=== PATIENT | male | born 1955 | race Caucasian/White ===

== ENCOUNTER 2017-03-28 15:46 | Emergency (ER) | payer OTHER ==
[2017-03-28 16:26] VITALS: TEMP 99.1; BMI 26.0
--- NOTE | 2017-03-28 17:09 | PDOC ---
Attending Attestation - HPI HPI: 03/28/17 18:59 The patient is a 61 year old male, with a significant past medical history of HTN, COPD, schizophrenia, MDD, HLD, daily aspirin use, repeated falls, who presents to the emergency department from [facility] s/p mechanical fall yesterday with scrapes on his forehead. The patient was a poor historian. He denies a headache. Allergies: NKA Social History: Smoker (3 cigarettes a day). ROS: A complete review of 10 out of 10 review of systems is taken and is negative apart from what is previously mentioned below and in the HPI. - Physicial Exam PE: 03/28/17 19:01 Vitals: Triage vital signs reviewed General Appearance: No acute distress, well nourished, well developed Head: +Abrasion to forehead. Eyes: Pupils equal reactive round, extraocular movement intact Neck: Supple; No nuchal rigidity Chest Wall: Nontender Cardiac: Regular rate and rhythm, no murmurs, no rubs, no gallops Lungs: Clear to auscultation bilateral, good air movement bilaterally Abdomen: Soft, nondistended, normal bowel sounds, nontender to palpation Genitourinary: Rectal: Exam deferred Extremities: Full range of motion to all extremities, no cyanosis, clubbing, or edema Skin: Warm and dry, no rashes or lesions, no rash, no petechiae Neuro: AOX3; Cranial Nerves 2-12 grossly intact, Strength intact to all extremities, Sensation intact to all extremities, gait normal Psych: Normal mood, normal affect - Medical Decision Making 03/28/17 19:01 Patient is a 61 year old male presenting to the emergency department from [facility] s/p mechanical fall yesterday with a laceration to the forehead. Plan is to perform a CT head and blood work. EXAM: CT head noncontrast HISTORY: Fall COMPARISON: None. FINDINGS: There is no intra or extra-axial hemorrhage or collection. No mass lesion or midline shift. There is moderate cortical atrophy. The ventricles are not enlarged and are midline in position Normal lance-white matter differentiation. The calvarium is intact. Mild scalp soft tissue swelling posterior vertex Mild mucoperiosteal thickening in the maxillary sinuses with possible small retention cyst or polyp in the left sphenoid sinus The visualized paranasal sinuses and mastoid air cells are clear. Debris in the bilateral auditory canals more so on the left side Read by: Brooks Munoz MD <Ollie Fonseca - Last Filed: 03/28/17 19:03> - Resident Resident Name: J Luis Templetonna - ED Attending Attestation I have performed the following: I have examined & evaluated the patient, The case was reviewed & discussed with the resident, I agree w/resident's findings & plan, Exceptions are as noted - Medical Decision Making [facility] normal neurologic examination here in the emergency department Imaging labs all within normal limits. We'll [facility] back to prison Findings, the need for follow-up, strict return instructions discussed with patient. A portion of this note was documented by scribe services under my direction I reviewed the details of note within reason and agree with the documentation with the following case summary and management plan written by me <Ricki Turner - Last Filed: 03/28/17 19:06> Attestations - Attestations 03/28/17 19:02 Documentation prepared by Ollie Fonseca, acting as medical record consultant for Ricki Turner MD. <Ollie Fonseca - Last Filed: 03/28/17 19:03>
--- NOTE | 2017-03-28 17:14 | PDOC ---
History of Present Illness <Ricki Turner - Last Filed: 03/28/17 17:47> - General History Source: Patient Exam Limitations: Clinical Condition - History of Present Illness Initial Comments: 03/28/17 17:14 61 M with PMH HTN, COPD, schizophrenia, MDD, HLD, daily aspirin use, repeated falls, who was brought to the ED from [facility] s/p fall. Pt is a poor historian. As per pt, he fell last night from his bed onto the floor, falling on his L side. Nurse at [facility] states that fall was witnessed by pt's roommate , who notified staff of fall. Denies head trauma, LOC, injury, palpitations prior, or seizure-like activity. Pt also denies current BARRAZA, fever, chills, N/V, or changes in urinary or bowel function. PMH: HTN, COPD, schizophrenia, MDD, HLD, daily aspirin use, repeated falls PsxH: LLE - unknown meds: as in chart allergies: NKDA FH: non-contributory SH: Has lived at [facility] for the past 7-8 yrs. active smoker; has smoked 3 cigarettes/day "for many years" - unable to quantify. Denies alcohol or recreational drug use <Geeta Templeton - Last Filed: 03/28/17 18:49> - General Chief Complaint: Injury Stated Complaint: FALL Time Seen by Provider: 03/28/17 16:03 Past History <Ricki Turner - Last Filed: 03/28/17 17:47> - Past Medical History Anemia: Yes COPD: Yes HTN: Yes Hypercholesterolemia: Yes Psychiatric Problems: Yes (Schizophrenia,Major Depressive Disorder) - Immunization History Td Vaccination: No (UNKNOWN) - Suicide/Smoking/Psychosocial Hx Smoking Status: Yes Smoking History: Former smoker Have you smoked in the past 12 months: No Number of Cigarettes Smoked Daily: 3 Cigars Per Day: 0 Information on smoking cessation initiated: No <Geeta Templeton - Last Filed: 03/28/17 18:49> - Past Medical History Allergies/Adverse Reactions: Allergies Allergy/AdvReac Type Severity Reaction Status Date / Time No Known Allergies Allergy Verified 03/28/17 16:22 Home Medications: Ambulatory Orders Albuterol Sulfate Inhaler - [Ventolin Hfa Inhaler -] 1 - 2 inh PO Q4H 03/28/17 Aspirin [ASA -] 81 mg PO DAILY 03/28/17 Cholecalciferol (Vitamin D3) [Vitamin D3 -] 1,000 unit PO DAILY 03/28/17 Fluticasone Propionate [Flovent Hfa] 440 mcg IH BID 03/28/17 Guaifenesin [Dipti-Tussin] 200 mg PO PRN PRN 03/28/17 Magnesium Hydrox 2400MG/30Ml [Milk of Magnesia -] 30 ml PO PRN PRN 03/28/17 Olanzapine [Zyprexa -] 5 mg PO DAILY 03/28/17 Pravastatin Sodium [Pravachol (Nf)] 20 mg PO HS 03/28/17 Sodium Phosphate,[place]-Dibasic [Fleet Enema] 118 ml RC PRN PRN 03/28/17 Review of Systems - Review of Systems Able to Perform ROS?: Yes Is the patient limited Japanese proficient: No All Other Systems: Reviewed and Negative (pt poor historian, most likely 2/2 clinical condition, however denies.) <Geeta Templeton - Last Filed: 03/28/17 18:49> *Physical Exam - Vital Signs Last Vital Signs Temp Pulse Resp BP Pulse Ox 99.1 F 69 16 134/80 97 03/28/17 16:22 03/28/17 16:22 03/28/17 16:22 03/28/17 16:22 03/28/17 16:22 <Ricki Turner - Last Filed: 03/28/17 17:47> - Vital Signs Last Vital Signs Temp Pulse Resp BP Pulse Ox 99.1 F 69 16 134/80 97 03/28/17 16:22 03/28/17 16:22 03/28/17 16:22 03/28/17 16:22 03/28/17 16:22 - Physical Exam General Appearance: Yes: Disheveled HEENT: positive: EOMI, SINDY, Other (forehead scar (+) - old, not current) Neck: positive: Supple Respiratory/Chest: positive: Lungs Clear Cardiovascular: positive: Regular Rhythm, Regular Rate Vascular Pulses: Dorsalis-Pedis (R): 2+, Doralis-Pedis (L): 2+ Gastrointestinal/Abdominal: positive: Normal Bowel Sounds, Soft Extremity: positive: Other (pt confused by commands, strength appears WNL. 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, Fully Oriented, Other (flat affect) <Geeta Templeton - Last Filed: 03/28/17 18:49> ED Treatment Course - LABORATORY CBC & Chemistry Diagram: 03/28/17 17:25 03/28/17 17:25 - ADDITIONAL ORDERS Additional order review: 03/28/17 17:25 RBC 5.59 MCV 85.3 MCHC 33.9 RDW 13.9 MPV 8.4 Neutrophils % 66.9 Lymphocytes % 24.2 Monocytes % 7.4 Eosinophils % 0.8 Basophils % 0.7 <Ricki Turner - Last Filed: 03/28/17 17:47> - LABORATORY CBC & Chemistry Diagram: 03/28/17 17:25 03/28/17 17:25 <Geeta Templeton - Last Filed: 03/28/17 18:49> Medical Decision Making - Medical Decision Making 03/28/17 17:48 Patient presents with unwitnessed fall normal neurologic exam poor historian we' ll CT had labs chest x-ray urinalysis and reassess <Ricki Turner - Last Filed: 03/28/17 17:47> - Medical Decision Making 03/28/17 17:38 61 M with PMH HTN, COPD, schizophrenia, MDD, HLD, daily aspirin use, repeated falls, who was brought to the ED from [facility] s/p fall. Pt for evaluation of Head CT non-con to r/o hemorrhage. However, will also check CBC, CXR, UA, Ucx - determine if infectious etiology or anemia, BMP to check electrolyte disturbances. Will order the following: -CBC with diff -CMP -Ucx, UA -CXR -Head CT-non con <Geeta Templeton - Last Filed: 03/28/17 18:49> *DC/Admit/Observation/Transfer <Ricki Turner - Last Filed: 03/28/17 17:47> <Geeta Templeton - Last Filed: 03/28/17 18:49> Diagnosis at time of Disposition: Fall Qualifiers: Encounter type: initial encounter Qualified Code(s): W19.XXXA - Unspecified fall, initial encounter - Discharge Dispostion Disposition: [facility]ACILITY Condition at time of disposition: Stable - Referrals Referrals: ON STAFF,NOT [Primary Care Provider] - - Patient Instructions Additional Instructions: You were recently in the hospital because you fell. Your blood and urine tests returned normal, and the CT scan of your head did not reveal evidence of any bleeding. You may return to [facility] and continue on your home meds. - Post Discharge Activity
[2017-03-28 17:37] LABS: BASO % 0.7 % (0-2.0); EOS % 0.8 % (0-4.5); HEMATOCRIT 47.7 % (35.4-49); HEMOGLOBIN 16.2 GM/dL (11.7-16.9); LYMPH % 24.2 % (8-40); MCH 28.9 pg (25.7-33.7); MCHC 33.9 g/dl (32.0-35.9); MEAN CELL VOLUME 85.3 fl (80-96); MEAN PLT VOLUME 8.4 fl (7.5-11.1); MONO % 7.4 % (3.8-10.2); NEUT % 66.9 % (42.8-82.8); PLATELET COUNT 354 K/MM3 (134-434); RBC 5.59 M/mm3 (4.00-5.60); RDW 13.9 % (11.9-15.9); WHITE BLOOD COUNT 11.2 K/mm3 (4.0-10.0)
[2017-03-28 18:02] LABS: ALBUMIN 4.3 g/dl (3.4-5.0); ANION GAP 7 (8-16); BILIRUBIN,TOTAL 0.6 mg/dL (0.2-1.0); BLOOD UREA NITROGEN 21 mg/dL (7-18); CHLORIDE 104 mmol/L (98-107); CO2 28 mmol/L (21-32); CREATININE 1.3 mg/dL (0.7-1.3); GLUCOSE,RANDOM 93 mg/dL (74-106); POTASSIUM 4.2 mmol/L (3.5-5.1); SGOT/AST 23 U/L (15-37); SGPT/ALT 33 U/L (12-78); SODIUM 139 mmol/L (136-145); TOT PROT 8.8 g/dl (6.4-8.2)
[2017-03-28 18:03] LABS: ALK PHOS 85 U/L (45-117)
[2017-03-28 18:30] LABS: URINE APPEARANCE CLEAR; URINE BILIRUBIN NEGATIVE (NEGATIVE); URINE BLOOD NEGATIVE (NEGATIVE); URINE COLOR LTYELLOW; URINE GLUCOSE (UA) NEGATIVE (NEGATIVE); URINE KETONE NEGATIVE (NEGATIVE); URINE LEUK ESTERASE NEGATIVE (NEGATIVE); URINE NITRITE NEGATIVE (NEGATIVE); URINE PROTEIN NEGATIVE (NEGATIVE); URINE UROBILINOGEN NEGATIVE mg/dL (0.2-1.0)
[2017-03-28 19:46] VITALS: BP 124/80; PULSE 68
== END 2017-03-28 22:27 ==
LOC: JER 15:46
DX: S00.81XA Abrasion of other part of head, initial encounter (principal); W06.XXXA Fall from bed, initial encounter; Y93.89 Activity, other specified; Y92.122 Bedroom in nursing home as the place of occurrence of the external cause; Y99.8 Other external cause status; I10 Essential (primary) hypertension; J44.9 Chronic obstructive pulmonary disease, unspecified; F33.9 Major depressive disorder, recurrent, unspecified; F20.9 Schizophrenia, unspecified; E78.00 Pure hypercholesterolemia, unspecified; Z79.82 Long term (current) use of aspirin
CPT/HCPCS: 36415; 70450-TC; 71045-TC-FY; 80053; 81003; 85025; 87086; 99282-25